=== PATIENT | male | born 1950 | race Caucasian/White ===

== ENCOUNTER 2016-06-18 18:14 | Emergency (ER) | payer BC ==
[2016-06-18] MEDS ORDERED: Amoxicillin PO (*) 500 MG CAP PO ONE (20:55)
--- NOTE | 2016-06-18 21:06 | UC ---
Throat Pain/Nasal Eder HPI - HPI Summary HPI Summary: 66 yo male with nasal congestion/post nasal drip/upper gum pain x days no fever/chills myalgias no cp or sob - History of Current Complaint Chief Complaint: UCGeneralIllness Stated Complaint: SINUSES Time Seen by Provider: 06/18/16 20:51 Hx Obtained From: Patient Onset/Duration: Gradual Onset, Lasting Days Severity: Moderate Pain Intensity: 4 Pain Scale Used: 0-10 Numeric Cough: Nonproductive Associated Signs & Symptoms: Positive: Sinus Discomfort, Nasal Discharge - Epiglottits Risk Factors Epiglottis Risk Factors: Negative - Allergies/Home Medications Allergies/Adverse Reactions: Allergies Allergy/AdvReac Type Severity Reaction Status Date / Time No Known Allergies Allergy Verified 05/19/15 21:33 PMH/Surg Hx/FS Hx/Imm Hx Previously Healthy: Yes Endocrine History Of: Denies: Diabetes, Thyroid Disease, Hyperthyroidism, Hypothyroidism, Dyslipidemia Cardiovascular History Of: Denies: Cardiac Disorders, Hypertension, Pacemaker/ICD, Myocardial Infarction , Congestive Heart Failure, Atrial Fibrillation, Deep Vein Thrombosis, Bleeding Disorders Respiratory History Of: Denies: COPD, Asthma, Bronchitis, Pneumonia, Pulmonary Embolism GI/ History Of: Denies: Gastroesophageal Reflux, Ulcer, Gastrointestinal Bleed, Gall Bladder Disease, Kidney Stones, Diverticulitis, Renal Disease, Urosepsis Neurological History Of: Denies: TIA, CVA, Dementia, Seizures, Migraine Psychological History Of: Denies: Anxiety, Depression, Bipolar Disorder, Schizophrenia, Post Traumatic Stress Disorder Cancer History Of: Denies: Lung Cancer, Colorectal Cancer, Breast Cancer, Prostate Cancer, Cervical Cancer Other History Of: Negative For: HIV, Hepatitis B, Hepatitis C - Surgical History Surgical History: Yes Surgery Procedure, Year, and Place: L knee- meniscus tear - Family History Known Family History: Negative: Cardiac Disease, Hypertension, Diabetes - Social History Alcohol Use: Occasionally Substance Use Type: None Smoking Status (MU): Never Smoked Tobacco Review of Systems Constitutional: Negative Skin: Negative Eyes: Negative ENT: Dental Pain, Nasal Discharge Respiratory: Cough Cardiovascular: Negative Gastrointestinal: Negative Genitourinary: Negative Motor: Negative Neurovascular: Negative Musculoskeletal: Negative Neurological: Negative Psychological: Negative All Other Systems Reviewed And Are Negative: Yes Physical Exam Triage Information Reviewed: Yes Appearance: Well-Appearing, No Pain Distress, Well-Nourished Vital Signs: Initial Vital Signs Temp 98.5 F 06/18/16 20:43 Pulse 78 06/18/16 20:43 Resp 16 06/18/16 20:43 BP 154/97 06/18/16 20:43 Pulse Ox 98 06/18/16 20:43 Vital Signs Reviewed: Yes Eyes: Positive: Conjunctiva Clear ENT: Positive: Hearing grossly normal, Nasal congestion, Nasal drainage, TMs normal, Other: - bilateral max sinus tenderness. Negative: Pharyngeal erythema , TM bulging, TM dull, TM red, Tonsillar swelling, Tonsillar exudate, Trismus, Muffled/hoarse voice Neck: Positive: Supple, Nontender Respiratory: Positive: Lungs clear, Normal breath sounds, No respiratory distress Cardiovascular: Positive: No Murmur, Pulses Normal Musculoskeletal: Positive: ROM Intact, No Edema Neurological Exam: Normal Psychological Exam: Normal Skin Exam: Normal Throat Pain/Nasal Course/Dx - Differential Dx/Diagnosis Provider Diagnoses: acute sinusitis Discharge - Discharge Plan Condition: Stable Disposition: HOME Prescriptions: Amoxicillin (*) 875 mg PO BID #20 tab Fluticasone NASAL SPRAY 50MCG* [Flonase NASAL SPRAY 50MCG*] 2 spray BOTH NARES DAILY #1 btl Patient Education Materials: Sinusitis (ED) Referrals: Ranulfo Troy MD [Primary Care Provider] - Additional Instructions: recheck for new or worsening symptoms
[2016-06-18 21:20] VITALS: BP 155/90
== END 2016-06-18 21:29 | disposition home or self-care (01) ==
LOC: UCCORT 18:14
DX: J01.90 Acute sinusitis, unspecified (principal)
CPT/HCPCS: 99212; A9270-GY; G0463

== ENCOUNTER 2016-12-22 15:14 | Emergency (ER) | payer BC ==
[2016-12-22 15:20] VITALS: BP 151/90
--- NOTE | 2016-12-22 16:09 | UC ---
Guido Sawyer Alfonso, scribed for Jose Wilson MD on 12/22/16 at 1540 . UC General HPI - HPI Summary HPI Summary: This patient is a 66 year old M presenting to [facility] with a chief complaint of chills since a few days ago. The patient rates the pain 7/10 in severity. Symptoms aggravated by nothing. Symptoms alleviated by nothing. Symptoms not alleviated by ibuprofen. Patient reports body aches, joint aches, tiredness, and sleeping longer (15 hours last night). Patient denies cough, chest congestion, nausea, diarrhea, abdominal pain, dysuria, urinary symptoms, and headache. He denies known tick bites, but he golfs often. He drinks coffee often. Medications reviewed. Allergies reviewed. - History of Current Complaint Chief Complaint: UCGeneralIllness Stated Complaint: MUSCLE PAIN Time Seen by Provider: 12/22/16 15:26 Hx Obtained From: Patient Onset/Duration: Sudden Onset, Lasting Days, Still Present Timing: Constant Onset Severity: Moderate Current Severity: Moderate Aggravating: Nothing Alleviating: Nothing Associated Signs & Symptoms: Positive: Other - body aches, joint aches, tiredness, and sleeping longer (15 hours last night). Patient denies cough, chest congestion, nausea, diarrhea, abdominal pain, dysuria, urinary symptoms, and headache. - Allergy/Home Medications Allergies/Adverse Reactions: Allergies Allergy/AdvReac Type Severity Reaction Status Date / Time No Known Allergies Allergy Verified 12/22/16 15:20 PMH/Surg Hx/FS Hx/Imm Hx GI/ History: Kidney Stones Other History Of: Negative For: HIV, Hepatitis B, Hepatitis C - Surgical History Surgical History: Yes Surgery Procedure, Year, and Place: L knee- meniscus tear - Family History Known Family History: Negative: Cardiac Disease, Hypertension, Diabetes - Social History Alcohol Use: Occasionally Substance Use Type: None Smoking Status (MU): Never Smoked Tobacco Review of Systems Constitutional: Chills Respiratory: Other - Negative cough, chest congestion, Gastrointestinal: Other - Negative nausea, diarrhea, abd pain Genitourinary: Other - Negative dysuria, urinary symptoms Musculoskeletal: Arthralgia, Myalgia Neurological: Other - tiredness, sleeping longer (15 hours last night); negative headache All Other Systems Reviewed And Are Negative: Yes Physical Exam Triage Information Reviewed: Yes Appearance: Well-Appearing, No Pain Distress Vital Signs: Initial Vital Signs Temp 99.3 F 12/22/16 15:17 Pulse 83 12/22/16 15:17 Resp 18 12/22/16 15:17 BP 151/90 12/22/16 15:17 Pulse Ox 99 12/22/16 15:17 Vital Signs Reviewed: Yes Eyes: Positive: Other: - EOMI SEDA ENT: Positive: Normal ENT inspection Neck: Positive: Supple, Nontender Respiratory: Positive: Lungs clear, Normal breath sounds Cardiovascular: Positive: RRR Abdomen Description: Positive: Nontender, Soft Bowel Sounds: Positive: Present Musculoskeletal: Positive: Strength Intact, ROM Intact Neurological: Positive: Alert Psychological: Positive: Age Appropriate Behavior Skin: Positive: Other - warm, color reflects adequate perfusion, dry Course/Dx - Course Course Of Treatment: PATIENT HAS NO FOCAL SOURCE OF INFECTION. DISCUSSED LYME ( NO TICK BITES OR RASHES), SINUSITIS (NO RHINORRHEA), PROSTATITIS (NO DYSURIA, INCREASE IN URINARY FREQUENCY, PELVIC/SCROTAL PAIN) POSSIBLE CAUSES BUT, NONE OF THESE ARE OBVIOUS AT THIS TIME. THE PLAN IS TO GET A CRP, CBC, CMP AND LYME SCREEN AND F/U WITH PMD; RETURN OR GO TO THE ED IF NOT IMPROVED OR WORSE. - Differential Dx - Multi-Symptom Provider Diagnoses: FEVER, FATIGUE. Discharge - Discharge Plan Condition: Stable Disposition: HOME Patient Education Materials: Fever in Adults (ED), Fatigue (ED) Referrals: Ranulfo Troy MD [Primary Care Provider] - 1 Week Additional Instructions: FOLLOW UP WITH YOUR PRIMARY CARE PROVIDER WITHIN THE WEEK FOR HIGH BLOOD PRESSURE NOTED TODAY AT 151/90. FOLLOW UP WITH YOUR DOCTOR. GET RECHECKED FOR ANY WORSENING OF YOUR CONDITION OR QUESTIONS OR CONCERNS. The documentation as recorded by the Guido cedillo Alfonso accurately reflects the service I personally performed and the decisions made by me, Jose Wilson MD.
[2016-12-23 14:35] LABS: Hematocrit 47 % (42-52); Hemoglobin 16.6 g/dl (14.0-18.0); Mean Corpuscular HGB Conc 35 g/dl (31-36); Mean Corpuscular Hemoglobin 30 pg (27-31); Mean Corpuscular Volume 85 fL (80-94); Mean Platelet Volume 7 um3 (7.4-10.4); Red Blood Count 5.58 10^6/ul (4.0-5.4); Red Cell Distribution Width 13 % (10.5-15); White Blood Count 4.2 10^3/ul (3.5-10.8)
[2016-12-23 14:37] LABS: Add Diff/Slide Review? Slide Review Added; Comments Flag Yes
[2016-12-23 14:59] LABS: Albumin 4.6 g/dL (3.2-5.2); BUN/Creatinine Ratio 11.5 (8-20); Calcium 9.3 mg/dL (8.6-10.3); EGFR African American 101.1 (>60); EGFR Non-African American 78.6 (>60); Globulin 2.2 g/dL (2-4); Potassium 4.2 mmol/L (3.5-5.0); Total Bilirubin 1.8 mg/dL (0.2-1.0); Total Protein 6.8 g/dL (6.4-8.9)
--- NOTE | 2016-12-23 15:53 | UC ---
Progress - Progress Note Progress Note: call patient and assure he has follow up with pcp--if not encourage for follow up in next week or to ED if symptoms continue of worsening
[2016-12-27 13:43] LABS: Lyme Disease IgG Ab WB Negative (Negative)
--- NOTE | 2016-12-27 16:23 | UC ---
Progress - Progress Note Progress Note: call patient and assure he has follow up with pcp--if not encourage for follow up in next week or to ED if symptoms continue of worsening 12/27/16 4:22 pm notify pt of results should follow up with PMD if he has not already done so MD Real
== END 2016-12-22 16:00 | disposition home or self-care (01) ==
LOC: UCEAST 15:14
DX: R50.9 Fever, unspecified (principal); R53.83 Other fatigue
CPT/HCPCS: 36415; 80053; 85025; 86141; 86617; 86618; 99211; G0463

== ENCOUNTER 2018-01-07 20:13 | Emergency (ER) | payer BC, OTHER ==
[2018-01-07 20:53] VITALS: BP 150/87
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
== END 2018-01-07 21:18 | disposition home or self-care (01) ==
LOC: UCCORT 20:13
DX: S16.1XXA Strain of muscle, fascia and tendon at neck level, initial encounter (principal); T22.011A Burn of unspecified degree of right forearm, initial encounter; V43.52XA Car driver injured in collision with other type car in traffic accident, initial encounter; Y93.89 Activity, other specified; Y92.9 Unspecified place or not applicable
CPT/HCPCS: 99211; G0463

== ENCOUNTER 2018-07-31 05:32 | Day surgery (SDC) | payer BC ==
--- NOTE | 2018-07-22 12:11 | HP ---
HISTORY AND PHYSICAL: DATE OF SURGERY: 07/31/18 DATE OF OFFICE VISIT: 07/21/18 SURGEON: Hoa Croft MD* (dictated by JERSON Schmidt). PROCEDURE: Right knee arthroscopy with partial meniscectomy, possible chondroplasty, possible synovectomy, and possible plica excision. CHIEF COMPLAINT: Right knee pain. HISTORY OF PRESENT ILLNESS: Mr. Desai is a 68-year-old gentleman with complaints of right knee pain and MRI confirms a meniscus tear. He has elected to proceed with a right knee arthroscopy. PAST MEDICAL HISTORY: High cholesterol. PAST SURGICAL HISTORY: Left knee arthroscopy. CURRENT MEDICATIONS: 1. Atorvastatin. 2. Calcium. 3. Daily multivitamin. 4. Vitamin D. 5. Biotin. 6. Bi-Flex. ALLERGIES: No known drug allergies. FAMILY HISTORY: Denies. SOCIAL HISTORY: Mr. Desai is a 68-year-old gentleman who lives with his stepfather. He does not smoke or use drugs, denies use of alcohol. REVIEW OF SYSTEMS: A complete 14-point review of systems was reviewed with the patient, was all negative and noncontributory. He denies history of DVT, PE, hepatitis, HIV, or anesthesia problems. PHYSICAL EXAMINATION GENERAL: He is well developed, well nourished, in no acute distress. VITAL SIGNS: He stands 71-1/2 inches tall, weighs 217 pounds. His blood pressure is 140/88, his heart rate is 80. HEENT: Normocephalic, atraumatic. NECK: Supple, no palpable lymph nodes. PULMONARY: The lungs are clear to auscultation bilaterally. CARDIAC: Regular rate and rhythm. Strong S1, S2. ABDOMEN: Soft, nontender, nondistended. NEUROLOGICAL: He is alert and oriented x3. MUSCULOSKELETAL: Right lower extremity, the skin is intact. There are no open wounds or abrasions. There is a mild to moderate joint effusion of the right knee, some tenderness over the medial joint line. Positive Jennifer's, positive Apley's. Negative Twin's. Calves are soft, nontender. He is able to dorsiflex and plantarflex. He has 2+ dorsalis pedis pulse. ASSESSMENT AND PLAN: Mr. Desai is a 68-year-old gentleman with complaints of right knee pain. An MRI confirms a medial meniscus tear. He has elected to proceed with a right knee arthroscopy with partial meniscectomy, possible chondroplasty, possible synovectomy, possible plica excision. Surgery is scheduled for 07/31/[address] Croft discussed the risks and benefits of the surgery at today's visit, and all of his questions were answered. He will follow up with Dr. Croft 2 weeks after the surgery. JERSON SCHMIDT [id number]/[facility] #: [id number] A.[facility]. FOX MEMORIAL HOSPITALGrisel
[~2018-07-31 05:32] MED LIST: Buffered Lidocaine 1% SYRIN* 1 ML/SYRINGE INTRADERM ONE
[2018-07-31] MEDS ORDERED: Dexamethasone IV* 4 MG/ML 1 ML (4 MG) IV SLOW PU ONE (06:00)
[2018-07-31] MEDS ORDERED: Lactated Ringers 1000 ML Bag* 1,000 ML IV SCH (06:00)
[2018-07-31] MEDS ORDERED: Famotidine IV* 10 MG/ML 2 ML (20 mg) IV ONE (06:00)
[2018-07-31] MEDS ORDERED: Dexamethasone IV* 4 MG/ML 1 ML (4 MG) ONE (06:02)
[2018-07-31] MEDS ORDERED: Buffered Lidocaine 1% SYRIN* 1 ML/SYRINGE INTRADERM ONE (06:02)
[2018-07-31] MEDS ORDERED: Famotidine IV* 10 MG/ML 2 ML (20 mg) ONE (06:03)
[2018-07-31] MEDS ORDERED: ceFAZolin 2 GM in NS PREMIX(*) 2 GM/100 ML BAG IVPB ONE (06:03)
[2018-07-31] MEDS ORDERED: Midazolam* 1 MG/ML 5 ML VIAL (5 MG) ONE (07:11)
[2018-07-31] MEDS ORDERED: fentaNYL* 50 MCG/ML 5 ML VIAL (250 MCG VIAL) ONE (07:11)
[2018-07-31] MEDS ORDERED: Phenylephrine 10 MG/ML VIAL* 1 ML VIAL ONE (07:12)
[2018-07-31] MEDS ORDERED: Ondansetron INJ* 2 MG/ML VIAL ONE (07:12)
[2018-07-31] MEDS ORDERED: Lidocaine 2% PF * 5 ML VIAL ONE (07:12)
[2018-07-31] MEDS ORDERED: Propofol* 10 MG/ML 20 ML BTL ONE (07:12)
[2018-07-31] MEDS ORDERED: Ketorolac INJ* 30 MG/ML 1 ML VIAL ONE (07:12)
[2018-07-31] MEDS ORDERED: methylPREDNISolone ACETATE 80* 80 MG/ML 1 ML VIAL ONE (07:17)
[2018-07-31] MEDS ORDERED: EPINEPHRINE 1 MG/ML 1 ML VIAL ONE (07:17)
[2018-07-31] MEDS ORDERED: Bupivacaine 0.5%* 50 ML VIAL ONE (07:17)
[2018-07-31] MEDS ORDERED: oxyCODONE/Acetamin 5/325 MG* TAB PO PRN (07:40)
[2018-07-31] MEDS ORDERED: Ondansetron INJ* 2 MG/ML VIAL IV PRN (07:40)
[2018-07-31] MEDS ORDERED: fentaNYL* 50 MCG/ML 2 ML VIAL (100 MCG VIAL) IV PRN (07:40)
[2018-07-31] MEDS ORDERED: DiMENhydriNATE IV* 50 MG/ML VIAL IV PUSH PRN (07:40)
[2018-07-31] MEDS ORDERED: Naloxone* 0.4 MG/ML 1 ML VIAL IV PRN (07:40)
[2018-07-31 09:23] VITALS: BP 160/98
--- NOTE | 2018-08-01 01:24 | OP ---
DATE OF OPERATION: 07/31/18 - [facility] DATE OF : 52 ATTENDING SURGEON: Hoa Croft M.D. PAYROLL ASSOCIATE: JERSON Johnson. Mr. Vasques did help throughout the procedure with preparation of the leg, wound retraction, manipulation of the knee, and wound closure. ANESTHESIOLOGIST: Dr. Carvajal. ANESTHESIA: General. PRE-OP DIAGNOSIS: Right knee medial meniscal tear with moderate arthritic changes. 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 OPERATIVE PROCEDURE: Right knee arthroscopy with partial medial meniscectomy and partial lateral meniscectomy, medial compartment chondroplasty. SPECIMEN: None. EBL: Less than 25 cc. COMPLICATIONS: None. BRIEF HISTORY/INDICATIONS: Mr. Desai is a 68-year-old gentleman with acute twisting injury to the right knee. He started to have severe pain and mechanical symptoms. MRI confirmed a medial meniscal tear. The patient did have some baseline arthritic changes. Due to the continued severe pain and mechanical symptoms, he elected to undergo right knee arthroscopy. Informed consent was obtained from the patient. He understood that the risks of surgery included, but were not limited to bleeding, infection, damage to nearby structures, continued pain, need for further surgery, intraoperative complication, re-tear of the meniscus, progression of arthritis, stroke, heart attack, blood clot, and . He wished to proceed. INTRAOPERATIVE FINDINGS: Intraoperatively, the patient was noted to have a severe arthritic changes in the medial and patellofemoral compartment. These were grade 3 and 4 Outerbridge cartilage changes. He had a parrot beak-type tear of the medial meniscus involving the body of posterior horn with some displacement anteriorly into the joint line. This was in the white-red zone. He also had a radial tear in the posterior aspect of the lateral meniscus as well. This was in the white-red zone. DESCRIPTION OF PROCEDURE: Mr. Desai was identified in the preanesthesia unit. His right lower extremity was marked as the correct operative side. Informed consent was signed and placed in the chart. The patient was taken to the operating room and placed under general anesthesia. Right lower extremity was prepped and draped in the usual sterile fashion. Preop time-out was made to correctly identify the patient, side, and site. Appropriate perioperative antibiotics were given within 1 hour of incision. A 0.5-cm standard anterolateral portal incision was made with a 15-blade and carried down through the capsule. The trocar was introduced. As soon as the light and water sources were turned on, there was immediate visualization of the suprapatellar pouch. A tour of the knee joint was performed. The suprapatellar pouch showed no obvious abnormalities. Patellofemoral compartment showed grade 3 and 4 Outerbridge cartilage changes with large surface area of exposed subchondral bone along the femoral trochlear groove and the medial patellar facet. Medial gutter showed no loose body or plica. Medial compartment showed grade 3 and 4 Outerbridge cartilage changes with a large area of exposed subchondral bone along the medial femoral condyle and the large cartilage flap. There was a displaced medial meniscal tear into the joint line. This was a parrot beak-type tear. ACL and PCL appeared to be intact. The knee was placed in a [id number] position. Lateral compartment had minimal degenerative changes. There was a radial tear in the posterior horn of the lateral meniscus knee. Under direct visualization, a medial portal incision was made with a 10-blade. A probe was introduced and a second tour of the knee joint was performed. Shaver and radiofrequency ablation wand were used to remove some anterior synovitis. Medial femoral condyle had some conservative chondroplasty with radiofrequency ablation wand. Cartilage flapping was carefully smoothed. Next, the shaver and straight biter were used to perform partial medial meniscectomy. This was mainly in the white-red zone, small amounts in the red- red zone. Parrot beak-type displaced bone tear was carefully removed. A smooth border of the meniscus was obtained. Radiofrequency ablation wand was used to further smooth the edge of the meniscus. Further probing of the meniscus showed no additional tears or displaced fragments. The knee was placed in a [id number] position. The radiofrequency ablation wand, straight biter, and shaver were used to perform partial lateral meniscectomy. The radial tear of the lateral horn of the lateral meniscus was carefully excised. Smooth border of the lateral meniscus was obtained. The knee was copiously irrigated with sterile saline. All instruments were carefully removed. Incisions were closed using 3-0 nylon suture. Intraarticular injection of 80 mg Depo-Medrol and 4 cc of 0.5% ropivacaine was placed in the knee joint. The patient's incisions were covered with Xeroform, 4x4s, and Webril. YAQUELIN wrap and cold pack were placed over this. The patient's anesthesia was reversed without difficulty. He was taken to the PACU in stable condition. Intended weightbearing will be weightbearing as tolerated. Intended DVT prophylaxis will be aspirin. [id number]/[facility] #: [id number] MTDD
== END 2018-07-31 09:48 | disposition home or self-care (01) ==
LOC: OR 05:32
PROVIDERS: ATTEND Orthopaedic Surgery Adult Reconstructive Orthopaedic Surgery
DX: S83.241A Other tear of medial meniscus, current injury, right knee, initial encounter (principal); S83.281A Other tear of lateral meniscus, current injury, right knee, initial encounter; M17.11 Unilateral primary osteoarthritis, right knee; X50.0XXA Overexertion from strenuous movement or load, initial encounter; Y92.9 Unspecified place or not applicable
CPT/HCPCS: J0690; J1040; J1100; J1885; J2250; J2405; J2704; J3010

== ENCOUNTER 2018-11-01 08:46 | Emergency (ER) | payer BC ==
[2018-11-01 09:08] VITALS: BP 159/97
--- NOTE | 2018-11-01 09:39 | UC ---
Dizzy HPI HPI Summary: 68-year-old male comes in with a chief complaint of dizziness. Started about 3 days ago. He has some sinus congestion and noticed ear drainage. When he moves his head he feels dizzy. Dizziness gets better when he stops moving his head. No headache no fevers no chills. No change in vision or speech. No weakness or numbness. No fevers. - History Of Current Complaint Chief Complaint: UCDizziness Stated Complaint: LIGHT HEADED Time Seen by Provider: 11/01/18 09:23 Pain Intensity: 0 - Allergies/Home Medications Allergies/Adverse Reactions: Allergies Allergy/AdvReac Type Severity Reaction Status Date / Time No Known Allergies Allergy Verified 07/23/18 10:15 PMH/Surg Hx/FS Hx/Imm Hx Previously Healthy: Yes Endocrine History: Dyslipidemia Other History Of: Negative For: HIV, Hepatitis B, Hepatitis C - Surgical History Surgical History: Yes Surgery Procedure, Year, and Place: L knee- meniscus tear, 6 yrs ago, [facility] [place]. R knee meniscus repair July 2018 - Family History Known Family History: Negative: Cardiac Disease, Hypertension, Diabetes - Social History Alcohol Use: Occasionally Alcohol Amount: 4-6 per month Substance Use Type: None Smoking Status (MU): Never Smoked Tobacco Review of Systems All Other Systems Reviewed And Are Negative: Yes Constitutional: Positive: Other - DIZZINESS Skin: Positive: Negative Eyes: Positive: Negative ENT: Positive: Ear Ache, Nasal Discharge, Sinus Congestion Respiratory: Positive: Negative Cardiovascular: Positive: Negative Gastrointestinal: Positive: Negative Motor: Positive: Negative Neurovascular: Positive: Negative Musculoskeletal: Positive: Negative Neurological: Positive: Negative Psychological: Positive: Negative Is Patient Immunocompromised?: No Physical Exam Triage Information Reviewed: Yes Appearance: Well-Appearing, No Pain Distress, Well-Nourished Vital Signs: Initial Vital Signs Temp 99.1 F 11/01/18 09:05 Pulse 73 11/01/18 09:05 Resp 18 11/01/18 09:05 BP 159/97 11/01/18 09:05 Pulse Ox 96 11/01/18 09:05 Vital Signs Reviewed: Yes Eye Exam: Normal Eyes: Positive: Conjunctiva Clear, Other: - PERRLA/EOMI,NO NYSTAGMUS ENT: Positive: Pharynx normal, TMs normal Neck: Positive: Supple Respiratory: Positive: Lungs clear, Normal breath sounds, No respiratory distress Cardiovascular: Positive: RRR Musculoskeletal Exam: Normal Musculoskeletal: Positive: Strength Intact, ROM Intact Neurological: Positive: Alert, Muscle Tone Normal, Other: - No focal neurologic deficit. Normal finger to nose normal heel to [place]. I did not appreciate any nystagmus on examination. Psychological: Positive: Age Appropriate Behavior Skin Exam: Normal Dizzy Course/Dx - Course Course Of Treatment: Patient describes sinusitis and environmental allergy symptoms. He's already treating with Flonase and an [id number] antihistamine. Because the sinusitis symptoms may be the underlying cause for the vertigo gone ahead and treat that with Augmentin. Also meclizine to be used as needed. Patient has normal finger-nose normal heel to [place] no focal neurologic deficit which makes the possibility of stroke very low. Did discuss the signs and symptoms of stroke and that if the patient did not improve or worsened he needs to get reevaluated again right away. We also discussed maneuvers to help decrease vertigo. - Differential Dx/Diagnosis Provider Diagnosis: Vertigo, Sinusitis Discharge - Sign-Out/Discharge Documenting (check all that apply): Patient Departure All imaging exams completed and their final reports reviewed: No Studies - Discharge Plan Condition: Stable Disposition: HOME Prescriptions: Amoxicillin/Clavulanate TAB* [Augmentin TAB 875*] 875 mg PO BID #20 tab Meclizine HCl [Motion Sickness Relief] 25 mg PO Q6HR PRN #20 tablet PRN Reason: Vertigo Patient Education Materials: Sinusitis (ED), Vertigo (ED) Referrals: Ranulfo Troy MD [Primary Care Provider] - Additional Instructions: FOLLOW UP WITH YOUR DOCTOR IF NOT COMPLETELY IMPROVED. GET RECHECKED SOONER IF YOUR CONDITION WORSENS; THE DIZZINESS DOES NOT IMPROVE, WEAKNESS, NUMBNESS, DIFFICULTY WITH VISION OR SPEECH OR ANY QUESTIONS OR CONCERNS. - Billing Disposition and Condition Condition: STABLE Disposition: Home
== END 2018-11-01 09:40 | disposition home or self-care (01) ==
LOC: UCEAST 08:46
DX: R42 Dizziness and giddiness (principal); J32.9 Chronic sinusitis, unspecified; E78.5 Hyperlipidemia, unspecified
CPT/HCPCS: 99212; G0463